=== PATIENT | female | born 1940 | race Caucasian/White ===

== ENCOUNTER → 2016-04-15 | Outpatient (CLI) | payer MEDICARE | END | disposition home or self-care (01) | LOC: YCHH 11:08 | PROVIDERS: ATTEND Family Medicine | DX: D64.9 Anemia, unspecified (principal); N18.9 Chronic kidney disease, unspecified; E11.9 Type 2 diabetes mellitus without complications; I50.9 Heart failure, unspecified ==

== ENCOUNTER 2016-04-26 16:57 | Inpatient (IN) | payer MEDICARE ==
[2016-04-26] MEDS ORDERED: IPRATROPIUM/ALBUTEROL 3 ML VIAL NEB ONE (17:12)
[2016-04-26] MEDS ORDERED: ASPIRIN (CHEWABLE) 81 MG TAB PO ONE (17:13)
--- NOTE | 2016-04-26 17:17 | ED.PDOC ---
History of Present Illness - General Chief Complaint: Respiratory Problem Stated Complaint: shortness of breath Time Seen by Provider: 04/26/16 17:11 Source: patient, family Exam Limitations: no limitations - History of Present Illness Initial Comments: Patient is a 75 yo F with NIDDM, distant tobacco use who presents with two- three days of increasing dyspnea. She has no chest pain and no history of cardiac disease. No cough. No recent URI. No history of DVT. Dyspnea is worse with activity and better with rest. Has occasional bipedal edema that resolves on its own. No other complaints. Timing/Duration: other - 2-3 days Severity: moderate Improving Factors: rest Worsening Factors: movement Associated Symptoms: denies symptoms Allergies/Adverse Reactions: Allergies NO KNOWN ALLERGY Allergy (Unverified 01/30/14 17:41) Home Medications: Ambulatory Orders Aspirin [Aspirin EC] 81 mg PO DAILY 01/31/14 Citalopram Hydrobromide [Celexa] 20 mg PO DAILY 01/31/14 Glipizide 5 mg PO BIDAC 01/31/14 Lisinopril 20 mg PO QPM 01/31/14 Lisinopril 40 mg PO DAILY 01/31/14 Metformin HCl [Metformin HCl ER] 1,000 mg PO BEDTIME 01/31/14 Metformin HCl [Metformin HCl ER] 500 mg PO 0730,1200 01/31/14 Metoprolol Succinate [Metoprolol Succinate ER] 25 mg PO DAILY 01/31/14 Nifedipine [Nifedipine ER] 90 mg PO DAILY 01/31/14 Sitagliptin Phosphate [Januvia] 100 mg PO DAILYBK 01/31/14 Trazodone HCl 50 mg PO BEDTIME 01/31/14 Albuterol Inhaler [Proventil Hfa Inhaler] 2 puff IN Q4-6H PRN #1 inh 02/01/14 Atorvastatin Calcium [Lipitor] 10 mg PO BEDTIME 04/26/16 Famotidine [Pepcid Tab] 20 mg PO DAILY 04/26/16 Fluticasone Prop 0.05% Nasal [Flonase Nasal [facility]] 50 mcg NA DAILY 04/26/16 Gabapentin 600 mg PO BID 04/26/16 Hydrochlorothiazide 25 mg PO DAILY 04/26/16 Loratadine [Claritin] 10 mg PO DAILY PRN 04/26/16 Magnesium Hydroxide [Milk Of Magnesia] 7.75 % PO DAILY 04/26/16 Polyethylene Glycol 3350 [Miralax] 17 gm PO DAILY 04/26/16 raNITIdine HCL [Zantac] 150 mg PO BEDTIME 04/26/16 Review of Systems - Review of Systems Constitutional: States: no symptoms reported EENTM: States: no symptoms reported Respiratory: States: see HPI Cardiology: States: no symptoms reported Gastrointestinal/Abdominal: States: no symptoms reported Genitourinary: States: no symptoms reported Musculoskeletal: States: no symptoms reported Skin: States: no symptoms reported Neurological: States: no symptoms reported Endocrine: States: no symptoms reported Hematologic/Lymphatic: States: no symptoms reported Past Medical History (General) - Patient Medical History Hx Seizures: No Hx Stroke: Yes - last one in october 2013 Hx Asthma: No Hx of COPD: No Hx Cardiac Disorders: No Hx Congestive Heart Failure: No Hx Pacemaker: No Hx Hypertension: Yes Hx Diabetes: Yes Hx MRSA: No - Vaccination History Hx Influenza Vaccination: Yes Hx Pneumococcal Vaccination: Yes - Social History Hx Tobacco Use: Yes Hx Alcohol Use: No Hx Substance Use: No Hx Physical Abuse: No Hx Emotional Abuse: No Family Medical History - Family History Mother Family History: Unknown Living Status: Age at (years of age): 63 Cause of : heart Hx Family Asthma: Yes Hx Family Congestive Heart Failure: Yes Hx Family Hypertension: No Hx Family Stroke: No Hx Cardiac Disease: Yes Hx Family Diabetes: Yes Hx Family Cancer: No Physical Exam - Physical Exam General Appearance: Alert Ears, Nose, Throat: normal ENT inspection Neck: non-tender, full range of motion, supple Respiratory: chest non-tender, lungs clear, normal breath sounds, no respiratory distress, no accessory muscle use Cardiovascular/Chest: normal peripheral pulses, regular rate, rhythm, no edema Gastrointestinal/Abdominal: normal bowel sounds, non tender, soft Extremity: normal inspection, no pedal edema, no calf tenderness Skin Exam: normal color Lymphatic: no adenopathy Progress - Progress Progress: 04/26/16 17:19 Duonebs x one. ASA 324 mg po x one. EKG read by me showed bradycardia. No p waves evident. No ST changes nor T wave inversions. Troponin negative. 04/26/16 20:38 Lasix 40 mg IV x one improved dyspnea. D-dimer positive. CTA chest negative for PE. Patient admitted for diuresis. Laboratory Tests 04/26/16 04/26/16 17:18 18:00 WBC 11.7 H RBC 4.27 Hgb 11.8 L Hct 36.5 MCV 85.4 MCH 27.6 MCHC 32.5 L RDW 15.4 H Plt Count 266 MPV 8.6 Absolute Neuts (auto) 6.80 Absolute Lymphs (auto) 3.40 Absolute Monos (auto) 1.20 H Absolute Eos (auto) 0.30 Absolute Basos (auto) 0.00 Neutrophils % 58.4 Lymphocytes % 28.9 Monocytes % 9.9 H Eosinophils % 2.4 Basophils % 0.4 PT 11.3 INR 1.000 PTT (SP) 31.3 D-Dimer, Quantitative Cancelled 619 H* Sodium 136 Potassium 5.5 H Chloride 101 Carbon Dioxide 25 Anion Gap 15.5 BUN 37 H Creatinine 1.08 BUN/Creatinine Ratio 34.3 H Random Glucose 168 H Serum Osmolality 284.5 Calcium 9.3 Total Bilirubin 0.7 AST 18 ALT 14 Alkaline Phosphatase 66 Creatine Kinase 36 CK-MB (CK-2) 1.6 CK-MB (CK-2) % Not Reportable Troponin I 0.02 B-Natriuretic Peptide 1250.0 H* Serum Total Protein 7.0 Albumin 4.2 Globulin 2.8 Albumin/Globulin Ratio 1.5 04/26/16 20:40 04/26/16 20:41 Departure - Departure Clinical Impression: Dyspnea Disposition: Admit Patient Condition: Good Diet: other - as per hospitalist Activity: increase activity as tolerated Home Medications: Ambulatory Orders Aspirin [Aspirin EC] 81 mg PO DAILY 01/31/14 Citalopram Hydrobromide [Celexa] 20 mg PO DAILY 01/31/14 Glipizide 5 mg PO BIDAC 01/31/14 Lisinopril 20 mg PO QPM 01/31/14 Lisinopril 40 mg PO DAILY 01/31/14 Metformin HCl [Metformin HCl ER] 1,000 mg PO BEDTIME 01/31/14 Metformin HCl [Metformin HCl ER] 500 mg PO 0730,1200 01/31/14 Metoprolol Succinate [Metoprolol Succinate ER] 25 mg PO DAILY 01/31/14 Nifedipine [Nifedipine ER] 90 mg PO DAILY 01/31/14 Sitagliptin Phosphate [Januvia] 100 mg PO DAILYBK 01/31/14 Trazodone HCl 50 mg PO BEDTIME 01/31/14 Albuterol Inhaler [Proventil Hfa Inhaler] 2 puff IN Q4-6H PRN #1 inh 02/01/14 Atorvastatin Calcium [Lipitor] 10 mg PO BEDTIME 04/26/16 Famotidine [Pepcid Tab] 20 mg PO DAILY 04/26/16 Fluticasone Prop 0.05% Nasal [Flonase Nasal [facility]] 50 mcg NA DAILY 04/26/16 Gabapentin 600 mg PO BID 04/26/16 Hydrochlorothiazide 25 mg PO DAILY 04/26/16 Loratadine [Claritin] 10 mg PO DAILY PRN 04/26/16 Magnesium Hydroxide [Milk Of Magnesia] 7.75 % PO DAILY 04/26/16 Polyethylene Glycol 3350 [Miralax] 17 gm PO DAILY 04/26/16 raNITIdine HCL [Zantac] 150 mg PO BEDTIME 04/26/16
[2016-04-26] MEDS ORDERED: FUROSEMIDE INJ 40 MG/4 ML VIAL IV ONE (18:32)
--- NOTE | 2016-04-26 21:18 | HP ---
SUPERVISING PHYSICIAN: Pro Mckeon MD CHIEF COMPLAINT: Shortness of breath. HISTORY OF PRESENT ILLNESS: This is a 75-year-old female patient who has had some shortness of breath over the last week or so and it has progressively worsened over the last 2 to 3 days, especially at night or with any exertion. She has had to sleep in a recliner the last 2 days and she has been very weak. Her daughter came to see her today and she decided she should be brought to the Emergency Room. In the Emergency Room, she continued to have shortness of breath and weakness. Her labs showed WBCs of 11.7, hemoglobin 11.8, hematocrit 36.5, and her chemistries showed sodium 136, potassium 5.5, chloride 101, carbon dioxide 25, BUN 37, creatinine 1.08, glucose 168. Her cardiac enzymes were negative, but her BNP was 1250. D-dimer 619. CTA of the chest was done and was without findings to suggest a pulmonary arterial embolus and the lungs also showed emphysematous lungs. There was also an incidental notation of a large hypoattenuating lesion at the level of the left thyroid lobe and correlation with thyroid sonography is recommended. She was given 40 mg of Lasix in the Emergency Room and diuresed about 800 mL. She has never had a diagnosis of congestive heart failure. I was called for hospital admission. PAST MEDICAL HISTORY: 1. Diabetes mellitus, type 2. 2. Hypertension. 3. Cerebrovascular accident in 2013. 4. Cerebral aneurysm in 1985. Both the CVA and the aneurysm caused left sided residual weakness. 5. Allergic rhinitis. 6. Seasonal allergies. 7. Chronic obstructive pulmonary disease. 8. Gastroesophageal reflux disease. PAST SURGICAL HISTORY: 1. Hysterectomy. 2. Left carotid endarterectomy. CURRENT MEDICATIONS: Per the EMR and awaiting verification. ALLERGIES: NO KNOWN DRUG ALLERGIES. FAMILY HISTORY: Positive for diabetes and coronary artery disease. SOCIAL HISTORY: She smoked for approximately 30 to 40 years and quit about 15 years ago. She denies any ETOH or illicit drug use. The patient is a and a retired beautician. She lives in [place]. Her primary care physician is Dr. Yarelis Oneal. REVIEW OF SYSTEMS: GENERAL: She complains of fatigue and weakness. Denies fever or chills. HEENT: Denies vision changes, but complains of seasonal allergies. RESPIRATORY: Complains of shortness of breath. Denies wheezing, coughing. CARDIAC: Denies chest pain, palpitations or tachycardia. GASTROINTESTINAL: Denies nausea, vomiting, diarrhea, constipation or abdominal pain. GENITOURINARY: Denies hematuria, dysuria or polyuria. SKIN: Denies lesions or rashes. EXTREMITIES: Complains of occasional pedal edema, especially when she is on her feet for very long. NEUROLOGIC: Denies headaches or seizures. PHYSICAL EXAMINATION: VITAL SIGNS: Afebrile. Heart rate as low as 40 in the Emergency Room and is now about 57. Blood pressure 128/68. Respiratory rate 22. O2 saturation 90% to 92% on room air. GENERAL: This is a 75-year-old, female patient who is lying in her hospital bed. She is in no acute distress. HEENT: Normocephalic, atraumatic. Pupils are equal and reactive. Oropharynx is clear. NECK: Supple without mass. No discernible jugular venous distention. RESPIRATORY: Lungs show a few scattered crackles throughout, somewhat diminished at the bases. CHEST: There is equal rise and fall of the chest with inspiration and expiration. CARDIAC: Bradycardic rate and regular rhythm. ABDOMEN: Soft, nondistended, nontender. Bowel sounds are positive. EXTREMITIES: Trace pedal edema bilaterally. Pedal pulses are palpable at +1 bilaterally. NEUROLOGIC: Awake, alert and oriented times three. LABORATORY: Labs and films are as per the history of present illness. ASSESSMENT: 1. Congestive heart failure of new onset with an elevated BNP of 1250. She is presently on an MEME inhibitor and a beta oskar as well as HCTZ. 2. Bradycardia, most likely due to her beta oskar. 3. Diabetes mellitus, type 2. 4. History of cerebrovascular accident and aneurysm with residual left sided weakness. 5. Gastroesophageal reflux disease. 6. Chronic obstructive pulmonary disease. 7. Seasonal allergies. PLAN: We will admit the patient to the hospital. We will initiate congestive heart failure guidelines. Tonight, we will hold her beta oskar and watch her rate. She will need an echocardiogram as well as cardiac workup. I will also give her additional diuretics and recheck her lab in the morning as well as a chest x-ray. We will monitor I&O closely as well as do congestive heart failure teaching. Sliding scale insulin has been implemented. We will encourage good pulmonary toilet. Dr. Mckeon is the collaborating physician and available for consultation. #[id number] [facility] [place]
[2016-04-26] MEDS ORDERED: ALBUTEROL SULFATE 2.5 MG/3 ML VIAL NEB PRN (22:58)
[2016-04-26] MEDS ORDERED: NITROGLYCERIN 0.4 MG 25 EA TAB SL PRN (22:58)
[2016-04-26] MEDS ORDERED: SODIUM CHLORIDE 0.9% (FLUSH) 10 ML SYG IV PRN (22:58)
[2016-04-26] MEDS ORDERED: NON-FORMULARY MEDICATION 1 EA MIS (Gabapentin [Gabapentin] 600 MG) PO SCH (23:00)
[2016-04-26] MEDS ORDERED: GLUCAGON INJ 1 MG VIAL SUBCU PRN (23:04)
[2016-04-26] MEDS ORDERED: DEXTROSE 50% 25 GM/50 ML SYG IV PRN (23:04)
[2016-04-26] MEDS ORDERED: GABAPENTIN 300 MG CAP ONE (23:39)
[2016-04-26] MEDS: IV SET AND CAP CHANGE INJ INJ SCH (23:45)
[2016-04-26] MEDS: traZODone HCL 50 MG TAB PO SCH (23:45)
[2016-04-27] MEDS ORDERED: NON-FORMULARY MEDICATION 1 EA MIS (Sitagliptin Phosphate [Januvia] 100 MG) PO SCH (07:30)
[2016-04-27] MEDS ORDERED: SITagliptin 50 MG TAB PO ONE (07:34)
[2016-04-27] MEDS ORDERED: SODIUM CHLORIDE 0.9% 10 ML VIAL IV PRN (07:44)
[2016-04-27] MEDS: INSULIN LISPRO 100 UNITS/ML PEN SUBCU SCH ×4 (08:04→21:47)
[2016-04-27] MEDS: ALBUTEROL SULFATE 2.5 MG/3 ML VIAL NEB SCH ×4 (08:16→19:30)
[2016-04-27] MEDS ORDERED: FUROSEMIDE INJ 40 MG/4 ML VIAL IV SCH (09:00)
[2016-04-27] MEDS: CITALOPRAM HBR 20 MG TAB PO SCH (09:42)
[2016-04-27] MEDS: LISINOPRIL 10 MG TAB PO SCH ×2 (09:42→17:57)
[2016-04-27] MEDS: GABAPENTIN 300 MG CAP PO SCH ×2 (09:42→20:57)
[2016-04-27] MEDS: SODIUM CHLORIDE 0.9% (FLUSH) 10 ML SYG IV SCH ×2 (09:43→20:58)
[2016-04-27] MEDS: POLYETHYLENE GLYCOL 3350 17 GM PCKT PO SCH (09:43)
[2016-04-27] MEDS: NIFEdipine XL 90 MG TAB PO SCH (09:47)
[2016-04-27] MEDS: LORATADINE 10 MG TAB PO SCH (09:49)
--- NOTE | 2016-04-27 11:54 | PCM.CORE ---
Physician DVT/VTE - Prophylaxis Currently: Patient already on anticoagulation therapy - Nurse DVT Assessment & Total Each Risk Factor Represents 3 Points: Medical PT with Hx of NM, CHF, Severe infection/sepsis Each Risk Factor Represents 2 Points: Age 60-74 Each Risk Factor is 1 Point: Varicose Veins/Edema Legs, Obesity (BMI >25) DVT Assessment Score: 7 - 5 or more Very High Risk Treatments: Early Ambulation *, Sequential Compression Device
[2016-04-27] MEDS: PANTOPRAZOLE SODIUM IV 40 MG VIAL IV SCH (12:38)
[2016-04-27] MEDS: ENOXAPARIN SODIUM 40 MG/0.4 ML SYG SUBCU SCH (12:38)
--- NOTE | 2016-04-27 13:34 | PN ---
SUPERVISING PHYSICIAN: Brian Patel MD DATE: 04/27/16 SUBJECTIVE: The patient is sitting in bed. She has no complaints of shortness of breath, chest pains, nausea, vomiting, or swelling. She also says she feels much better than yesterday and she actually slept for the first time in three or four days. We discussed a followup cardiology appointment and she would like to Dr. Li here in [place] as her daughter works for [employer] and she would rather see a print buyer here in [facility]. OBJECTIVE: VITAL SIGNS: Afebrile. Heart rate 50. Blood pressure 118/71. Respiratory rate 18. O2 saturation 94% on 2 liters nasal cannula. I&Os show she is negative 2 liters overnight. GENERAL: This is a 75-year-old, female patient who is lying in her hospital bed. She is in no acute distress. LUNGS: A few scattered crackles at the apices, but much improved since yesterday. Otherwise, clear to auscultation. CARDIAC: Bradycardic rate and regular rhythm, although her ate occasionally goes up to the low 60s. ABDOMEN: Soft, nontender, nondistended. Bowel sounds are positive. EXTREMITIES: No cyanosis, clubbing or edema. NEUROLOGIC: Awake, alert and oriented times three. LABORATORY: WBC have normalized to 6.7. Potassium dropped from 5.5 yesterday to 3.9 today. Chloride is 99. BUN 29, creatinine 0.73. Glucose is 154. Urinalysis within normal limits. Chest x-ray shows peribronchial thickening. All other labs and films have been reviewed via the EMR. ASSESSMENT: 1. Congestive heart failure of new onset with an elevated BNP on admission of 1250. She is presently on an MEME inhibitor. 2. Bradycardia, most likely due to her beta oskar, which is metoprolol and has been held. 3. Diabetes mellitus, type 2. 4. History of cerebrovascular accident and aneurysm with residual left sided weakness. 5. Gastroesophageal reflux disease. 6. Chronic obstructive pulmonary disease. 7. Seasonal allergies. PLAN: We will continue supportive care. I have discontinued her IV Lasix and have transitioned her to p.o. I will check a BMP in the morning to check her potassium. She would like to see Dr. Li, so we will get an appointment with him on Monday. I have also ordered an echocardiogram. Laboratory and chest x-ray will be repeated on Monday. I have our creative art director, Birgit Melendez, to contact [facility] as that is her home health agency so they can do followup for her on discharge. She will need followup with Dr. Yarelis Oneal, her primary care physician in [place]. I will continue to hold her Lopressor for now and will let Dr. Li evaluate that. Continue to encourage good pulmonary toilet. I will get her up and ambulating in the [place] and we will followup as needed. Dr. Patel is the collaborating physician and available for consultation. #[id number] [facility]
--- NOTE | 2016-04-27 13:47 | RAD ---
EXAM DESCRIPTION: Chest,1 View CLINICAL HISTORY: dyspnea shortness of breath. COMPARISON: January 31, 2014 FINDINGS: Cardiac silhouette is within normal limits. Aorta is tortuous. There is atherosclerosis. EKG leads project over the chest. There is no focal parenchymal or pleural disease. There is no acute osseous process visualized. IMPRESSION: No evidence of acute cardiopulmonary disease. Electronically signed by: Nato Muller MD 04/26/2016 5:31 PM [employer]
[2016-04-27] MEDS: traZODone HCL 50 MG TAB PO SCH (20:57)
[2016-04-27] MEDS: ATORVASTATIN 10 MG TAB PO SCH (20:57)
[2016-04-28] MEDS: INSULIN LISPRO 100 UNITS/ML PEN SUBCU SCH ×4 (07:34→21:08)
[2016-04-28] MEDS: SITagliptin 50 MG TAB PO SCH (07:56)
[2016-04-28] MEDS: ALBUTEROL SULFATE 2.5 MG/3 ML VIAL NEB SCH ×4 (08:38→20:04)
[2016-04-28] MEDS: NIFEdipine XL 90 MG TAB PO SCH (08:49)
[2016-04-28] MEDS: FUROSEMIDE 40 MG TAB PO SCH (08:49)
[2016-04-28] MEDS: LISINOPRIL 10 MG TAB PO SCH ×2 (08:50→18:34)
[2016-04-28] MEDS: LORATADINE 10 MG TAB PO SCH (08:51)
[2016-04-28] MEDS: GABAPENTIN 300 MG CAP PO SCH ×2 (08:51→20:45)
[2016-04-28] MEDS: CITALOPRAM HBR 20 MG TAB PO SCH (08:51)
[2016-04-28] MEDS: POLYETHYLENE GLYCOL 3350 17 GM PCKT PO SCH (08:52)
[2016-04-28] MEDS: SODIUM CHLORIDE 0.9% (FLUSH) 10 ML SYG IV SCH ×2 (08:53→20:46)
[2016-04-28] MEDS ORDERED: ALPRAZolam 0.25 MG TAB PO PRN (10:58)
[2016-04-28] MEDS: PANTOPRAZOLE SODIUM IV 40 MG VIAL IV SCH (12:35)
[2016-04-28] MEDS: ENOXAPARIN SODIUM 40 MG/0.4 ML SYG SUBCU SCH (12:35)
--- NOTE | 2016-04-28 18:43 | PN ---
DATE: 04/28/16 SUPERVISING PHYSICIAN: Brian Patel M.D. SUBJECTIVE: The patient is sitting up in her hospital bed. She is visiting with her daughter. She has no complaints of shortness of breath, chest pain, coughing, nausea or vomiting or extremity swelling. She does, however, state that she takes Trazodone at night, but she has not been able to sleep as she usually does. OBJECTIVE: She is afebrile pulse rate 59, blood pressure 110/70, respiratory rate 20, O2 sat 92% on room air. GENERAL: This 75 year-old female patient is lying in her hospital bed. She is in no acute distress. RESPIRATORY: Essentially clear to auscultation although she has a few scattered crackles in the right upper lobe. CARDIAC: regular rate and rhythm. ABDOMEN: Soft, nondistended, non-tender. Bowel sounds are positive. EXTREMITIES: No cyanosis , clubbing or edema. NEUROLOGIC: She is awake, alert and oriented times three LABORATORY: Her white count has normalized to 6.7, hemoglobin 12.1, hematocrit 36.5, platelets 227. Sodium 140, potassium 4, chloride 98, carbon dioxide 30, BUN 24, creatinine 1. Ambulation study revealed that her SpO2 dropped to 87% with ambulation. She was dyspneic and was assisted back to bed without problems. All other labs and films have been reviewed via the EMR. ASSESSMENT: 1. Congestive heart failure, new onset with an elevated BNP on admission of 1250. She is presently on an Gen inhibitor. 2. Bradycardia most likely due to her beta oskar, Metoprolol, and this has been held since admission. Her bradycardia is in the upper 50s and low 60s today. 3. Diabetes mellitus type 2. 4. History of cerebrovascular accident and an aneurysm with residual left sided weakness. 5. Gastroesophageal reflux disease. 6. Chronic obstructive pulmonary disease. 7. Seasonal allergies. PLAN: We will continue present supportive care. I have ordered a PT evaluation. She became quite weak during her ambulation study and het oxygen sats dropped to the mid 80s.. Will also notified [facility] that she will need a very close followup after she is discharged. She has an appointment with Dr. Li tomorrow to evaluate her congestive heart failure as well as her Metoprolol dosing. We will get Birgit Melendez, our [employer] Employee, to work on home O2. I have added Xanax as needed to help with her insomnia. I will repeat her ambulation study tomorrow. Hopefully she can improve or we can get her oxygen ordered. I have ordered a chest x-ray, BNP, CMP and CBC for tomorrow morning. Dr. Patel is the collaborating physician and available for consultation. #[id number] [facility]
[2016-04-28] MEDS: ATORVASTATIN 10 MG TAB PO SCH (20:45)
[2016-04-28] MEDS: traZODone HCL 50 MG TAB PO SCH (20:46)
[2016-04-28] MEDS: ALPRAZolam 0.25 MG TAB PO PRN (20:46)
--- NOTE | 2016-04-29 06:46 | RAD ---
EXAM DESCRIPTION: XR CHEST 2 VIEWS CLINICAL HISTORY: Congestive heart failure. Bradycardia COMPARISON: 04/27/2016 TECHNIQUE: Two-views of the chest. FINDINGS: Heart size is normal. Lungs are clear. No acute osseous injury. IMPRESSION: No acute chest process Electronically signed by: Claudy Terrazas MD 04/29/2016 06:44
[2016-04-29] MEDS: INSULIN LISPRO 100 UNITS/ML PEN SUBCU SCH ×5 (07:43→20:53)
[2016-04-29] MEDS: SITagliptin 50 MG TAB PO SCH (07:57)
[2016-04-29] MEDS: ALBUTEROL SULFATE 2.5 MG/3 ML VIAL NEB SCH ×4 (08:14→20:25)
[2016-04-29] MEDS: LISINOPRIL 10 MG TAB PO SCH ×2 (09:23→18:09)
[2016-04-29] MEDS: FUROSEMIDE 40 MG TAB PO SCH (09:23)
[2016-04-29] MEDS: LORATADINE 10 MG TAB PO SCH (09:23)
[2016-04-29] MEDS: CITALOPRAM HBR 20 MG TAB PO SCH (09:23)
[2016-04-29] MEDS: NIFEdipine XL 90 MG TAB PO SCH (09:23)
[2016-04-29] MEDS: SODIUM CHLORIDE 0.9% (FLUSH) 10 ML SYG IV SCH ×2 (09:25→20:44)
[2016-04-29] MEDS: POLYETHYLENE GLYCOL 3350 17 GM PCKT PO SCH (09:25)
[2016-04-29] MEDS: GABAPENTIN 300 MG CAP PO SCH ×2 (09:25→20:47)
[2016-04-29] MEDS: PANTOPRAZOLE SODIUM IV 40 MG VIAL IV SCH (13:03)
[2016-04-29] MEDS ORDERED: MAGNESIUM HYDROXIDE 30 ML UD PO ONE (13:03)
[2016-04-29] MEDS: ENOXAPARIN SODIUM 40 MG/0.4 ML SYG SUBCU SCH (13:03)
--- NOTE | 2016-04-29 16:56 | PN ---
DATE: 04/29/16 SUPERVISING PHYSICIAN: Claudy Mckeon M.D. SUBJECTIVE: The patient has just been walking in the hallways. She does get slightly short of breath. It was reported that she dropped to 86% on room air but she has stayed above 91% with 2 liters nasal cannula. Other than the shortness of breath, she denies any chest pain, nausea or vomiting, swelling, and also states that her sleeping is better with the Xanax that I gave her last night. OBJECTIVE: She is afebrile, heart rate 63, blood pressure 124/65, respiratory rate 20, O2 sats are as indicated in the subjective and at this point are 92% on 2 liters nasal cannula. RESPIRATORY: Essentially clear to auscultation. CARDIAC: Regular rate and rhythm. ABDOMEN: Soft, nondistended, non-tender. Bowel sounds are positive. EXTREMITIES: No cyanosis, clubbing or edema. Her chest x-ray this morning shows no acute chest process. LABORATORY: WBC 6.7, hemoglobin 11.6, hematocrit 36, platelets 244. Sodium 142 , potassium 4.5, chloride 102, carbon dioxide 30, BUN 27, creatinine 1.16, glucose 181. All other labs and films have been reviewed via the EMR. ASSESSMENT: 1. Congestive heart failure new onset with an elevated BNP on admission of 1250. She is presently on an Gen inhibitor. Her echocardiogram from today per Dr. Li shows probable diastolic dysfunction of the left ventricle with an ejection fraction of 65%. 2. Bradycardia most likely due to her beta oskar, Metoprolol has been held since admission and her heart rate is in the 60s today. 3. Diabetes mellitus type 2. 4. History of cerebrovascular accident with aneurysm and residual left sided weakness. 5. Gastroesophageal reflux disease. 6. Chronic obstructive pulmonary disease. 7. Seasonal allergies. PLAN: We will continue present supportive care and plan on discharge tomorrow. Because her oxygen saturations dropped on room air, we will order her supplemental oxygen. [facility] will be seeing her after discharge. She is to have a followup with Dr. Oneal to followup on her medications. Dr. Li saw her today and he recommended that she continue on her Gen inhibitor and he was fine with discontinuing her Metoprolol due to her heart rate, and he also recommended that she be on a low dose of Lasix. I have discontinued her Metoprolol. Her blood pressure is good at this time and so I will continue her present dosing of her Gen inhibitor. She is also on 20 mg of Lasix daily and we will continue that. I believe she also has a followup appointment with Dr. Li. We will plan for discharge tomorrow. We will continue to monitor the patient closely and followup as needed. #[id number] [facility]
[2016-04-29] MEDS: ATORVASTATIN 10 MG TAB PO SCH (20:47)
[2016-04-29] MEDS: traZODone HCL 50 MG TAB PO SCH (20:47)
[2016-04-29] MEDS: ALPRAZolam 0.25 MG TAB PO PRN (20:47)
[2016-04-30] MEDS: SITagliptin 50 MG TAB PO SCH (07:41)
[2016-04-30] MEDS: INSULIN LISPRO 100 UNITS/ML PEN SUBCU SCH (07:42)
[2016-04-30] MEDS: IV SET AND CAP CHANGE INJ INJ SCH (07:42)
[2016-04-30] MEDS: ALBUTEROL SULFATE 2.5 MG/3 ML VIAL NEB SCH (08:40)
[2016-04-30] MEDS: NIFEdipine XL 90 MG TAB PO SCH (09:02)
[2016-04-30] MEDS: LISINOPRIL 10 MG TAB PO SCH (09:02)
[2016-04-30] MEDS: FUROSEMIDE 40 MG TAB PO SCH (09:05)
[2016-04-30] MEDS: POLYETHYLENE GLYCOL 3350 17 GM PCKT PO SCH (09:06)
[2016-04-30] MEDS: CITALOPRAM HBR 20 MG TAB PO SCH (09:06)
[2016-04-30] MEDS: LORATADINE 10 MG TAB PO SCH (09:06)
[2016-04-30] MEDS: GABAPENTIN 300 MG CAP PO SCH (09:06)
[2016-04-30] MEDS: SODIUM CHLORIDE 0.9% (FLUSH) 10 ML SYG IV SCH (09:07)
[2016-04-30 10:05] VITALS: BP 153/73; TEMP 96.7; O2SAT 97
--- NOTE | 2016-04-30 14:50 | DS ---
SUPERVISING PHYSICIAN: Claudy Mckeon M.D. DISCHARGE DIAGNOSIS: 1. Congestive heart failure new onset with an elevated BNP on admission of 1250. An echocardiogram was done yesterday and she was found to have some diastolic dysfunction with an ejection fraction of 65% and moderate left atrial enlargement. 2. Bradycardia most likely due to her beta oskar. Metoprolol has been discontinued at this time and her heart rate is in the 60s. 3. Diabetes mellitus type 2. 4. Chronic obstructive pulmonary disease. 5. History of cerebrovascular accident with an aneurysm and residual left sided weakness. 6. Gastroesophageal reflux disease. 7. Seasonal allergies. HISTORY OF PRESENT ILLNESS: This is a 75 year-old female patient who has had some shortness of breath over the week prior to her admission and it progressively worsened over the last 2 to 3 days. It was especially worse at night. She has had to sleep in a recliner. Her daughter brought her to the Emergency Room. Her labs showed a WBC of 11.7, hemoglobin 11.8, hematocrit 36.5. Sodium 136, potassium 5.5, chloride 101, CO2 of 25, BUN 37, creatinine 1.08, glucose 168. Cardiac enzymes were negative but BNP was 1250 and D-dimer of 619. CT of her chest was done and there were no finding of pulmonary embolism. There was also an incidental notation of a large hypoattenuating lesion at the level of the left thyroid lobe and correlation with thyroid sonography is recommended. She denies any significant history of heart problems with the exception of hypertension. She diuresed well in the Emergency Room and I was called for admission. HOSPITAL COURSE: The patient improved daily and was transitioned off IV Lasix and changed to oral Lasix. Dr. Iván Li was consulted and he saw her in the hospital on Monday. He did an echocardiogram and it showed diastolic dysfunction with an ejection fraction of 65%. He recommended that she be taken off of her Metoprolol. She did not receive any Metoprolol in the hospital and he recommended that that be discontinued. He also recommended continuation of her Gen inhibitor as well as prescribing her low dose of Lasix. She did have some difficulty sleeping and she also gets short of breath. Her ambulation study revealed that on room air her oxygen saturation dropped to the mid 80s, so we have ordered home oxygen to be used as needed and I have encouraged her to use her oxygen at night when she sleeps. In regard to her difficulty sleeping, she has been on Trazodone for a while and she said it made her feel funny as well as she could not sleep. I gave her some Xanax and it worked very well for her sleep, so I will send her home on some p.r.n. Xanax. At this point , her vital signs have stabilized. She has improved to the point where now I believe she is safe to go home. DISCHARGE PLAN: The patient will be discharged home in good condition. She is to resume her diabetic diet. She has oxygen ordered and she has both portable and concentrator for her home. Her Metoprolol has been discontinued. Her Lisinopril has been continued and I have added 20 mg of Lasix daily. She is to have a followup with Dr. Li in the next month or so and it is imperative that she calls his office to get a followup appointment. She is also to have an appointment with her primary care physician, Dr. Ximena Oneal within the next 2 weeks. Recommend thyroid sonogram at some point due to the incidental finding on her CAT scan. She is to call Dr. Oneal's office or return to the hospital if she has any further complications or problems. DISCHARGE MEDICATIONS: 1. Lisinopril. 2. Metformin. 3. Citalopram. 4. Aspirin. 5. Glipizide. 6. Nifedipine. 7. Januvia. 8. Albuterol inhaler. 9. Zantac. 10. Pepcid. 11. Fluticasone. 12. Lipitor. 13. Claritin. 14. Gabapentin. 15. Polyethylene glycol. 16. Milk of magnesia. 17. Xanax. 18. Furosemide. Dr. Mckeon is the collaborating physician and available for consultation. #[id number] [facility]
--- NOTE | 2016-05-02 00:34 | RAD ---
EXAM DESCRIPTION: Chest,1 View CLINICAL HISTORY: dyspnea shortness of breath. COMPARISON: January 31, 2014 FINDINGS: Cardiac silhouette is within normal limits. Aorta is tortuous. There is atherosclerosis. EKG leads project over the chest. There is no focal parenchymal or pleural disease. There is no acute osseous process visualized. IMPRESSION: No evidence of acute cardiopulmonary disease. Electronically signed by: Nato Muller MD 04/26/2016 5:31 PM ELECTRIC SIGN WIRER
--- NOTE | 2016-05-02 00:35 | CT ---
EXAM: CTA Chest CLINICAL INDICATION: 75-year-old female with elevated d-dimer, shortness of breath and elevated BNP. COMPARISON: None. EXAMINATION: CT angiography of the pulmonary arteries was performed following intravenous administration of contrast. Coronal and bilateral oblique maximum intensity projections (MIPS) were created. FINDINGS: Chest: Evaluation through the lungs reveals emphysema without focal opacity, pleural effusion or pneumothorax. There is minimal dependent basilar atelectasis and scarring. The tracheobronchial airways are patent. No significant mediastinal or axillary lymphadenopathy by CT measurement criteria. Heart size within normal limits. No pericardial effusion. Coronary artery dense atherosclerotic calcification. Enlargement of the main pulmonary artery measuring up to 3.3 cm raising the concern for pulmonary arterial hypertension. Limited evaluation of the upper abdomen shows no acute intra-abdominal abnormalities. The osseous structures reveal diffuse demineralization. CT angiography: Diagnostic CT angiography of the pulmonary arteries without intraluminal filling defect noted to suggest pulmonary arterial embolus. Incidentally noted focal area of hypoattenuation is identified present at the level of the LEFT thyroid lobe measuring 25 x 13 mm, (series 2, image 59). IMPRESSION: 1. Diagnostic pulmonary angiography without findings to suggest pulmonary arterial embolus. 2. The lungs reveals emphysema without focal opacity, pleural effusion or pneumothorax. 3. No specific findings are noted to suggest etiology of the patient's chest pain and shortness of breath. 4. Incidentally noted large hypoattenuating lesion at the level of the LEFT thyroid lobe for which correlation with thyroid sonography is recommended by current practice guidelines. Electronically signed by: Winnie Knxo MD 04/26/2016 7:53 PM CUSTOMER ACCOUNT REPRESENTATIVE
--- NOTE | 2016-05-02 00:36 | RAD ---
EXAM: Two view chest. INDICATION: Chest pain. COMPARISON: Chest x-ray: 04/26/2016. FINDINGS: There is peribronchial thickening. There is no focal consolidation. The heart is at the upper limit of normal in size. There is no pneumothorax or pleural effusion. The bones are unchanged. IMPRESSION: Peribronchial thickening Electronically signed by: Jarrod Macias MD 04/27/2016 7:25 AM COUNTY ATTORNEY
== END 2016-04-30 10:40 | disposition home health service (06) | DRG 292 ==
LOC: ER 16:57 → OBSVTOIN 21:17 → MS 21:17
PROVIDERS: ADMIT Nurse Practitioner Acute Care; ATTEND Nurse Practitioner Acute Care
DX: I11.0 Hypertensive heart disease with heart failure (principal); I69.354 Hemiplegia and hemiparesis following cerebral infarction affecting left non-dominant side; I50.31 Acute diastolic (congestive) heart failure; I49.8 Other specified cardiac arrhythmias; T44.7X5A Adverse effect of beta-adrenoreceptor antagonists, initial encounter; E11.9 Type 2 diabetes mellitus without complications; J44.9 Chronic obstructive pulmonary disease, unspecified; K21.9 Gastro-esophageal reflux disease without esophagitis; J30.9 Allergic rhinitis, unspecified; Z87.891 Personal history of nicotine dependence; Z79.82 Long term (current) use of aspirin; Z79.84 Long term (current) use of oral hypoglycemic drugs; Z79.899 Other long term (current) drug therapy; Y92.009 Unspecified place in unspecified non-institutional (private) residence as the place of occurrence of the external cause

== ENCOUNTER → 2016-10-21 | Outpatient (CLI) | payer MEDICARE | END | disposition home or self-care (01) | LOC: YCHH 11:16 | PROVIDERS: ATTEND Family Medicine | DX: E11.21 Type 2 diabetes mellitus with diabetic nephropathy (principal); I10 Essential (primary) hypertension; E78.5 Hyperlipidemia, unspecified; D64.9 Anemia, unspecified ==

== ENCOUNTER → 2017-04-07 | Outpatient (CLI) | payer MEDICARE | LOC: YCHH 11:43 | PROVIDERS: ATTEND Family Medicine | DX: E11.21 Type 2 diabetes mellitus with diabetic nephropathy (principal); E78.5 Hyperlipidemia, unspecified; Z79.899 Other long term (current) drug therapy ==

== ENCOUNTER → 2017-11-17 | Outpatient (CLI) | payer MEDICARE | LOC: YCHH 11:54 | PROVIDERS: ATTEND Family Medicine | DX: I10 Essential (primary) hypertension (principal); E78.5 Hyperlipidemia, unspecified; E11.21 Type 2 diabetes mellitus with diabetic nephropathy ==

== ENCOUNTER 2018-04-15 20:29 | Emergency (ER) | payer MEDICARE ==
[2018-04-15 20:43] VITALS: TEMP 98.1
[2018-04-15] MEDS ORDERED: HYDROcodone 7.5MG/APAP 325MG 1 EA TAB PO ONE (21:40)
--- NOTE | 2018-04-15 21:47 | ED.PDOC ---
History of Present Illness - General Chief Complaint: Lower Extremity Injury Stated Complaint: knee pain Time Seen by Provider: 04/15/18 20:31 Source: patient Exam Limitations: no limitations - History of Present Illness Initial Comments: the patient is a 77-year-old female presenting to the emergency room secondary to left knee pain and difficulty getting around. The patient apparently fell a couple of days ago and was seen at [facility] where they did an appropriate workup including a head CT and x-rays of the left knee. There was no evidence of any fracture or dislocation. No evidence of any intracranial hemorrhage or acute pathology otherwise. She has had several strokes in the distant past and does have a difficult time getting around. She is unable to use any crutches. She was instructed at that time to obtain a wheelchair but she has not done that yet. she does have a rolling walker with a seat on it.The patient is very worked up and anxious. She moves the ankle well and moves the hip well. She has trace edema to bilateral lower extremities which apparently is chronic. She has an appointment with her primary care doctor tomorrow morning for evaluation for a wheelchair. She also thinks that she has lost her chronic pain medications. Timing/Duration: other - 2 days Severity: moderate Improving Factors: immobilization Worsening Factors: movement Associated Symptoms: denies symptoms Allergies/Adverse Reactions: Allergies NO KNOWN ALLERGY Allergy (Verified 04/27/16 07:46) Home Medications: Ambulatory Orders Aspirin [Aspirin EC] 81 mg PO DAILY 01/31/14 Citalopram Hydrobromide [Celexa] 20 mg PO DAILY 01/31/14 Glipizide 5 mg PO BIDAC 01/31/14 Lisinopril 20 mg PO QPM 01/31/14 Lisinopril 40 mg PO DAILY 01/31/14 Metformin HCl [Metformin HCl ER] 1,000 mg PO BEDTIME 01/31/14 Metformin HCl [Metformin HCl ER] 500 mg PO 0730,1200 01/31/14 Nifedipine [Nifedipine ER] 90 mg PO DAILY 01/31/14 Sitagliptin Phosphate [Januvia] 100 mg PO DAILYBK 01/31/14 Albuterol Inhaler [Ventolin Hfa Inhaler] 2 puff IN Q4-6H PRN #1 inh 02/01/14 Atorvastatin Calcium [Lipitor] 10 mg PO BEDTIME 04/26/16 Famotidine [Pepcid] 20 mg PO DAILY 04/26/16 Fluticasone Prop 0.05% Nasal [Flonase Nasal [place]] 50 mcg NA DAILY 04/26/16 Gabapentin 600 mg PO BID 04/26/16 Loratadine [Claritin] 10 mg PO DAILY PRN 04/26/16 Magnesium Hydroxide [Milk Of Magnesia] 7.75 % PO DAILY 04/26/16 Polyethylene Glycol 3350 [Miralax] 17 gm PO DAILY 04/26/16 raNITIdine HCL [Zantac] 150 mg PO BEDTIME 04/26/16 ALPRAZolam [Xanax] 0.125 - 0.25 mg PO BEDTIME PRN #10 tab 04/30/16 Furosemide 20 mg PO DAILY #30 tab 04/30/16 Review of Systems - Review of Systems Constitutional: States: no symptoms reported EENTM: States: no symptoms reported Respiratory: States: no symptoms reported Cardiology: States: no symptoms reported Gastrointestinal/Abdominal: States: no symptoms reported Genitourinary: States: no symptoms reported Musculoskeletal: States: see HPI Skin: States: no symptoms reported Neurological: States: anxiety Endocrine: States: no symptoms reported All other Systems: No Change from Baseline Past Medical History (General) - Patient Medical History Hx Seizures: No Hx Stroke: Yes - left side weakness Hx Asthma: No Hx of COPD: No Hx Cardiac Disorders: No Hx Congestive Heart Failure: Yes - new onset Hx Pacemaker: No Hx Hypertension: Yes Hx Diabetes: Yes Hx Cancer: No Hx Hepatitis C: No Hx MRSA: No Surgical History: Hysterectomy - Vaccination History Hx Tetanus, Diphtheria Vaccination: No Hx Influenza Vaccination: Yes Hx Pneumococcal Vaccination: Yes - Social History Hx Tobacco Use: Yes Hx Chewing Tobacco Use: No Hx Alcohol Use: No Hx Substance Use: No Hx Substance Use Treatment: No Hx Depression: No Hx Physical Abuse: No Hx Emotional Abuse: No Hx Suspected Abuse: No - Female History Patient : No - Triage Comment ED Triage Comment: L knee pain, seen in [facility] and treated Monday after fall Family Medical History - Family History Mother Family History: Unknown Living Status: Age at (years of age): 63 Cause of : heart Hx Family Asthma: Yes Hx Family Congestive Heart Failure: Yes Hx Family Hypertension: No Hx Family Stroke: No Hx Cardiac Disease: Yes Hx Family Diabetes: Yes Hx Family Cancer: No Physical Exam - Physical Exam General Appearance: Alert, Anxious Eye Exam: bilateral normal - she does have a left-sided periorbital hematoma. Extraocular movements are intact. No acute vision changes. Ears, Nose, Throat: hearing grossly normal, normal ENT inspection Neck: non-tender, full range of motion, supple Respiratory: lungs clear, normal breath sounds, no respiratory distress, no accessory muscle use Cardiovascular/Chest: normal peripheral pulses, no edema, other - regular rate Peripheral Pulses: radial,right: 2+, radial,left: 2+, dorsalis pedis,right: 2+, dorsalis pedis,left: 2+ Gastrointestinal/Abdominal: non tender, soft Rectal Exam: deferred Back Exam: no CVA tenderness, no vertebral tenderness Extremity: normal capillary refill, pedal edema - 1+ to bilateral lower extremities, other - she does have some swelling and tenderness to palpation of the left knee diffusely. She does have a knee immobilizer in place. Neurologic: senior radiation therapist II-XII nml as tested, alert, oriented x 3, other - the patient is very anxious Skin Exam: normal color Comments: Vital Signs - 24 hr 04/15/18 20:39 Temperature 98.1 F Pulse Rate [ 78 Right] Respiratory 20 Rate Blood Pressure 169/91 [Left Arm] O2 Sat by Pulse 94 L Oximetry Progress - Progress Progress: 04/15/18 21:49 the patient is a 77-year-old female presenting to emergency room secondary to persistent left knee pain with some difficulty getting around. x- rays have already been performed at an outside hospital showed no evidence of fracture or dislocation. The patient was given a dose of hydrocodone here for additional pain control. Until she is able to get her wheelchair she needs to use her walker with a seat to get around the house to prevent falls. She needs to follow-up with her primary care doctor tomorrow to get set up with a wheelch air and also possibly discuss the possibility of short-term care home or rehabilitation placement as she is having a difficult time functioning on her own in her home. of note, I did give her a prescription for one wheelchair. She does understand that she may have to pay out of pocket for this. Continue knee brace for now. Follow back up with primary care doctor in several weeks for reevaluation of the knee. ER warnings were given. Departure - Departure Clinical Impression: Sprain of knee Qualifiers: Encounter type: subsequent encounter Involved ligament of knee: unspecified ligament Laterality: left Qualified Code(s): S83.92XD - Sprain of unspecified site of left knee, subsequent encounter Disposition: Discharge to Home or Self Care Condition: Fair Departure Forms: ED Discharge - Pt. Copy, Patient Portal Self Enrollment Diet: diabetic diet Activity: no pushing/pulling with affected limb Referrals: ADY FUENTES DO [Primary Care Provider] - 1-2 Days Home Medications: Ambulatory Orders Aspirin [Aspirin EC] 81 mg PO DAILY 01/31/14 Citalopram Hydrobromide [Celexa] 20 mg PO DAILY 01/31/14 Glipizide 5 mg PO BIDAC 01/31/14 Lisinopril 20 mg PO QPM 01/31/14 Lisinopril 40 mg PO DAILY 01/31/14 Metformin HCl [Metformin HCl ER] 1,000 mg PO BEDTIME 01/31/14 Metformin HCl [Metformin HCl ER] 500 mg PO 0730,1200 01/31/14 Nifedipine [Nifedipine ER] 90 mg PO DAILY 01/31/14 Sitagliptin Phosphate [Januvia] 100 mg PO DAILYBK 01/31/14 Albuterol Inhaler [Ventolin Hfa Inhaler] 2 puff IN Q4-6H PRN #1 inh 02/01/14 Atorvastatin Calcium [Lipitor] 10 mg PO BEDTIME 04/26/16 Famotidine [Pepcid] 20 mg PO DAILY 04/26/16 Fluticasone Prop 0.05% Nasal [Flonase Nasal [place]] 50 mcg NA DAILY 04/26/16 Gabapentin 600 mg PO BID 04/26/16 Loratadine [Claritin] 10 mg PO DAILY PRN 04/26/16 Magnesium Hydroxide [Milk Of Magnesia] 7.75 % PO DAILY 04/26/16 Polyethylene Glycol 3350 [Miralax] 17 gm PO DAILY 04/26/16 raNITIdine HCL [Zantac] 150 mg PO BEDTIME 04/26/16 ALPRAZolam [Xanax] 0.125 - 0.25 mg PO BEDTIME PRN #10 tab 04/30/16 Furosemide 20 mg PO DAILY #30 tab 04/30/16 Additional Instructions: the patient is a 77-year-old female presenting to emergency room secondary to persistent left knee pain with some difficulty getting around. x- rays have already been performed at an outside hospital showed no evidence of fracture or dislocation. The patient was given a dose of hydrocodone here for additional pain control. Until she is able to get her wheelchair she needs to use her walker with a seat to get around the house to prevent falls. She needs to follow-up with her primary care doctor tomorrow to get set up with a wheelchair and also possibly discuss the possibility of short-term care home or rehabilitation placement as she is having a difficult time functioning on her own in her home. of note, I did give her a prescription for one wheelchair. She does understand that she may have to pay out of pocket for this. Continue knee brace for now. Follow back up with primary care doctor in several weeks for reevaluation of the knee. ER warnings were given.
[2018-04-15 21:50] VITALS: BP 127/54
[2018-04-15 22:02] VITALS: O2SAT 95
== END 2018-04-15 22:01 | disposition home or self-care (01) ==
LOC: ER 20:29
DX: S83.92XA Sprain of unspecified site of left knee, initial encounter (principal); I50.9 Heart failure, unspecified; I11.0 Hypertensive heart disease with heart failure; E11.9 Type 2 diabetes mellitus without complications; I69.354 Hemiplegia and hemiparesis following cerebral infarction affecting left non-dominant side; Z87.891 Personal history of nicotine dependence; Z79.84 Long term (current) use of oral hypoglycemic drugs; Z79.82 Long term (current) use of aspirin; Z79.899 Other long term (current) drug therapy; W19.XXXA Unspecified fall, initial encounter; Y92.9 Unspecified place or not applicable

== ENCOUNTER → 2018-06-01 | Outpatient (CLI) | payer MEDICARE | LOC: YCHH 12:49 | PROVIDERS: ATTEND Family Medicine | DX: E11.21 Type 2 diabetes mellitus with diabetic nephropathy (principal); D64.9 Anemia, unspecified ==

== ENCOUNTER → 2018-11-09 | Outpatient (CLI) | payer MEDICARE | LOC: YCHH 09:32 | PROVIDERS: ATTEND Family Medicine | DX: E11.21 Type 2 diabetes mellitus with diabetic nephropathy (principal); I10 Essential (primary) hypertension; E78.5 Hyperlipidemia, unspecified ==